=== PATIENT | male | born 1990 | race Two or more races ===

== ENCOUNTER 2020-10-10 14:01 | Emergency (ER) | payer OTHER ==
[~2020-10-10] VITALS: Ht 185.4 cm; Wt 113.4 kg
[~2020-10-10 14:01] MED LIST: KETO10TA2 PO
[2020-10-10] MEDS ORDERED: ABILIFY5 MG (14:41)
[2020-10-10] MEDS ORDERED: LITHOBID300 M1 (14:43)
[2020-10-10] MEDS ORDERED: VENLAFAXINE HC225 MG (14:43)
== END 2020-10-10 18:13 | disposition home or self-care (01) ==
LOC: ER 14:01
DX: R14.3 Flatulence (principal); R10.84 Generalized abdominal pain

== ENCOUNTER 2022-06-18 04:32 | Emergency (ER) | payer OTHER ==
[~2022-06-18] VITALS: Ht 182.9 cm; Wt 104.3 kg
[~2022-06-18 04:32] MED LIST changes: +ABILIFY5 MG; +LITHOBID300 M1; +VENLAFAXINE HC225 MG
== END 2022-06-18 08:17 | disposition home or self-care (01) ==
LOC: ER 04:32
DX: S00.93XA Contusion of unspecified part of head, initial encounter (principal); W18.30XA Fall on same level, unspecified, initial encounter; Y93.E8 Activity, other personal hygiene; Y92.012 Bathroom of single-family (private) house as the place of occurrence of the external cause; Y99.9 Unspecified external cause status

== ENCOUNTER 2023-05-24 08:40 | Outpatient (CLI) | payer OTHER | END 2023-05-24 08:50 | disposition home or self-care (01) | LOC: RAD 08:40 | DX: M84.471A Pathological fracture, right ankle, initial encounter for fracture (principal) ==

== ENCOUNTER → 2024-04-23 | Emergency (ER) | payer OTHER ==
[~2024-04-23] VITALS: Ht 180.3 cm; Wt 113.4 kg
== END | disposition left against medical advice (07) ==
LOC: ER 03:14
DX: Z53.21 Procedure and treatment not carried out due to patient leaving prior to being seen by health care provider (principal)